=== PATIENT | male | born 1990 | race African-American/Black ===

== ENCOUNTER 2019-03-12 06:53 | Emergency (ER) | payer SELFPAY ==
[~2019-03-12] VITALS: Ht 167.6 cm; Wt 91.9 kg
[2019-03-12 08:02] VITALS: BP 143/56
== END 2019-03-12 08:52 | disposition home or self-care (01) ==
LOC: ED 08:20
DX: N45.1 Epididymitis (principal); N50.812 Left testicular pain
CPT/HCPCS: 36415; 76870; 81001; 85025; 87086; 87491; 87591; 96372; 99284; J0696